=== PATIENT | male | born 1950 | race Caucasian/White ===

== ENCOUNTER 2020-05-13 15:15 | Inpatient (IN) | payer OTHER ==
[~2020-05-13] VITALS: Ht 185.4 cm; Wt 132.4 kg
--- NOTE | ~2020-05-13 | EKG ---
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
[~2020-05-13 15:15] MED LIST: INVOKANA100 MG PO; TIMOLOL GL0.5 %/5 ML OP; TRAVATAN Z2.5 ML OPHTHALMIC; VITAMIN D-32000 UNIT PO
[2020-05-13 15:21] VITALS: BP 144/82
[2020-05-13] MEDS ORDERED: METFORMIN HCL500 MG PO (15:41)
[2020-05-13] MEDS ORDERED: ATORVASTATIN CA20 MG PO (15:41)
[2020-05-13] MEDS ORDERED: TESTOSTERO200 MG/1 M IM (15:42)
[2020-05-13] MEDS ORDERED: LOSARTAN POTASS50 MG PO (15:42)
[2020-05-13] MEDS ORDERED: PROTONIX40 M2 PO (15:42)
[2020-05-13] MEDS ORDERED: SILDENAFIL CIT100 MG PO (15:43)
--- NOTE | 2020-05-13 15:44 | NUR ---
all except triage charted by DONAL Nagel
[2020-05-13 15:48] LABS: ABSOLUTE NEUTROPHILS 3.7 thou/uL (1.4-8.2); BASOPHILS 0.7 % (0.0-2.0); EOSINOPHILS 5.4 % (0.0-3.0); HEMATOCRIT 50.8 % (42.0-52.0); HEMOGLOBIN 17.1 gm/dL (14.0-18.0); LYMPHOCYTES 31.2 % (24.0-44.0); MCH 33.2 pg (26.0-34.0); MCHC 33.7 g/dL (28.0-37.0); MCV 98.5 fL (80.0-100.0); PLATELET COUNT 244 thou/uL (150-400); POLYS 50.7 % (36.0-66.0); RBC 5.15 mil/uL (4.50-6.00); RDW 13.4 % (10.5-14.5); WBC 7.2 thou/uL (4.0-11.0)
[2020-05-13 15:58] LABS: ANION GAP 7 mmol/L (7-16); BUN 17 mg/dL (7-18); CALCIUM 9.4 mg/dL (8.5-10.1); CHLORIDE 103 mmol/L (98-107); CO2 27 mmol/L (21-32); GLUCOSE 106 mg/dL (74-106); SODIUM 137 mmol/L (136-145)
[2020-05-13 16:08] LABS: ALBUMIN 4.6 g/dL (3.4-5.0); SGOT 34 U/L (15-37); SGPT 60 U/L (30-65); TOTAL PROTEIN 8.2 g/dL (6.4-8.2); TROPONIN-I <0.06 ng/mL (<0.06)
[2020-05-13 17:17] LABS: CHOLESTEROL 122 mg/dL (<200); HDL CHOLESTEROL 42 mg/dL (>40); LDL CHOLESTEROL 59 mg/dL (<100); TC:HDL 2.9 Ratio (Not establshd); TRIGLYCERIDE 105 mg/dL (<150); VLDL 21 mg/dL (<40)
--- NOTE | 2020-05-13 19:31 | NUR ---
PER , PT DOES NOT NEED PCR VERIFICATION FOR PLACEMENT. PT TO GO TO CCU.
[2020-05-13 20:19] VITALS: BP 122/56
--- NOTE | 2020-05-13 20:19 | NUR ---
HAND OFF REPORT SENT TO [facility]
[2020-05-13 21:00] VITALS: BP 135/68
--- NOTE | 2020-05-13 21:40 | NUR ---
RECIEVED PT BRINA JACOBSON FROM ED , UPON ARRIVAL TO UNIT PT DENIES CHEST PAIN OR SOA. 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 DISCUSSED PLAN OF CARE AND VERBALIZED UNDERSTANDING AND AGREEABLE . PT NPO AFTER MN FOR AM CARDIAC CATH.PT GAIT STEADY WHEN UP DNEIS DIZZINESS WHEN UP TO BATHROOM.
[2020-05-13 21:59] VITALS: BP 152/66
[2020-05-14] VITALS (12 sets, daily range): BP systolic 104–146; BP diastolic 61–105
[2020-05-14 02:06] LABS: GLYCOHEMOGLOBIN (HGB A1C) 6.6 % (4.8-5.6)
[2020-05-14 05:53] LABS: CALCIUM 9.1 mg/dL (8.5-10.1); CREATININE 1.2 mg/dL (0.7-1.3); POTASSIUM 4.4 mmol/L (3.5-5.1)
--- NOTE | 2020-05-14 07:53 | EKG ---
[facility] [place] [address] [place] [address] ELECTROCARDIOGRAM REPORT Name: JUD ROBERSON Room #: 213-P ADM IN M.R.#: [id number] Admission: 05/13/20 Attend Phys: Andrzej Smith MD, Discharge: Date of : 48 Report #: [id number] THIS REPORT FOR: cc: Srinivasa Pendleton MD, Bernard O. MD Santiago, Patrick MD [facility] ~ THIS REPORT FOR: //name// 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
--- NOTE | 2020-05-14 07:54 | EKG ---
[facility] [address] [address] [place] [address] ELECTROCARDIOGRAM REPORT Name: JUD ROBERSON Room #: 213-P ADM IN M.R.#: [id number] Admission: 05/13/20 Attend Phys: Andrzej Smith MD, Discharge: Date of : 48 Report #: [id number] THIS REPORT FOR: cc: Srinivasa Pendleton MD, Bernard O. 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 : 1950 Requested By: Andrzej Smith Order Number: [id number] MD: Phoenix Castano Measurements Intervals [place] Rate: 64 P: 12 FL: 188 QRS: -39 QRSD: 102 T: -17 QT: 392 QTc: 405 Interpretive Statements Sinus rhythm Abnormal R-wave progression, late transition Left ventricular hypertrophy Nonspecific T abnormalities, inferior leads Compared to ECG 05/13/2020 15:21:59 Left ventricular hypertrophy now present T-wave abnormality now present Left anterior fascicular block no longer present Myocardial infarct finding no longer present Electronically Signed On 05-14-2020 7:54:05 CDT by Phoenix Castano [email or web address] <ELECTRONICALLY SIGNED> By: Phoenix Castano MD, [facility] 05/14/20 0754 1625 1625 Phoenix Castano MD, [facility] /EPI
--- NOTE | 2020-05-14 07:57 | EKG ---
[facility] [place] [address] [address] [place] [address] ELECTROCARDIOGRAM REPORT Name: JUD ROBERSON Room #: 213-P ADM IN M.R.#: [id number] Admission: 05/13/20 Attend Phys: Andrzej Smith MD, Discharge: Date of : 48 Report #: [id number] THIS REPORT FOR: cc: Srinivasa Pendleton MD, Bernard O. 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 : 1950 Requested By: Andrzej Smith Order Number: [id number] MD: Phoenix Castano Measurements Intervals [place] Rate: 59 P: 19 GA: 183 QRS: -36 QRSD: 101 T: -23 QT: 414 QTc: 411 Interpretive Statements Sinus rhythm Probable left atrial enlargement Left ventricular hypertrophy Borderline T abnormalities, inferior leads Compared to ECG 05/13/2020 16:27:57 Left ventricular hypertrophy now present Left-axis deviation no longer present T-wave abnormality still present Electronically Signed On 05-14-2020 7:57:28 CDT by Phoenix Castano [email or web address] <ELECTRONICALLY SIGNED> By: Phoenix Castano MD, [facility] 05/14/20 0757 2 2 Phoenix Castano MD, [facility] /EPI
--- NOTE | 2020-05-14 08:05 | EKG ---
[facility] [place] [address] [address] [place] [address] ELECTROCARDIOGRAM REPORT Name: JUD ROBERSON Room #: 213-P ADM IN M.R.#: [id number] Admission: 05/13/20 Attend Phys: Andrzej Smith MD, Discharge: Date of : 48 Report #: [id number] THIS REPORT FOR: cc: Srinivasa Pendleton MD, Bernard O. MD Lundgren, Craig H. 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
--- NOTE | 2020-05-14 09:55 | 2DMMODE ---
[facility] [address] [place] [address] 2 D/M-MODE ECHOCARDIOGRAM Name: JUD ROBERSON Room #: 213-P ADM IN M.R.#: [id number] Admission: 05/13/20 Attend Phys: Andrzej Smith MD, Discharge: Date of : 48 Report #: [id number] THIS REPORT FOR: cc: Srinivasa Pendleton MD, Bernard O. MD Lammoglia, Francisco J. MD ~ APPROVED REPORT Study performed: 05/14/2020 08:43:09 EXAM: Comprehensive 2D, Doppler, and color-flow Echocardiogram Patient Location: Bedside Room #: 213 Status: routine BSA: 2.50 HR: 64 bpm BP: 104/62 mmHg Rhythm: NSR Other Information Study Quality: Adequate Indications Chest Pain Hx: HTN, HLP, DM, morbid obesity. 2D Dimensions RVDd: 37.22 mm IVSd: 12.36 (7-11mm) LVOT Diam: 22.58 (18-24mm) LVDd: 55.89 mm PWd: 11.34 (7-11mm) Ascending Ao: 38.71 (22-36mm) LVDs: 40.40 (25-40mm) Aortic Root: 35.39 mm Volumes Left Atrial Volume (Systole) Single Plane 4CH: 56.11 mL Single Plane 2CH: 59.04 mL LA ESV Index: 24.00 mL/m2 Aortic Valve AoV Peak Daniel.: 1.21 m/s AO Peak Gr.: 5.83 mmHg LVOT Max P.20 mmHg LVOT Max V: 1.03 m/s NISREEN Vmax: 3.40 cm2 [facility] [address] [place] [address] 2 D/M-MODE ECHOCARDIOGRAM Name: KAROLJUD A Room #: 213-P [facility]#: [id number] Admission: 05/13/20 Attend Phys: Andrzej Smith, Discharge: Date of : 48 Report #: [id number] Mitral Valve E/A Ratio: 1.2 MV Decel. Time: 386.43 ms MV E Max Daniel.: 0.51 m/s MV A Daniel.: 0.41 m/s MV PHT: 112.07 ms IVRT: 101.50 ms Pulmonary Valve PV Peak Daniel.: 1.13 m/s PV Peak Gr.: 5.13 mmHg Pulmonary Vein P Vein S: 0.37 m/s P Vein A: 0.20 m/s P Vein D: 0.33 m/s P Vein A Dur.: 138.4 msec P Vein S/D Ratio: 1.12 Tricuspid Valve TR Peak Daniel.: 2.05 m/s RAP Estimate: 5.00 mmHg TR Peak Gr.: 17.00 mmHg PA Pressure: 22.00 mmHg Left Ventricle The left ventricle is normal size. There is normal LV segmental wall motion. Mild concentric left ventricular hypertrophy. Left ventricular systolic function is normal. LVEF is 60-65%. Moderate diastolic dysfunction is present. Right Ventricle The right ventricle is normal size. The right ventricular systolic function is normal. Atria The left atrium size is normal. The right atrium size is normal. Aortic Valve The aortic valve is normal in structure. Mild aortic regurgitation. There is no aortic valvular stenosis. Mitral Valve The mitral valve is normal in structure. There is no mitral valve regurgitation noted. No evidence of mitral valve stenosis. Tricuspid Valve The tricuspid valve is normal in structure. Trace tricuspid [facility] [address] [address] 2 D/M-MODE ECHOCARDIOGRAM Name: JUD ROBERSON Room #: 213-P [facility] IN .R.#: [id number] Admission: 05/13/20 Attend Phys: Andrzej Smith, Discharge: Date of : 48 Report #: [id number] regurgitation. Estimated PAP is 20-25mmHg. Pulmonic Valve The pulmonary valve is normal in structure. Trace pulmonic regurgitation. Great Vessels The aortic root is normal in size. The ascending aorta is mildly dilated. IVC is normal in size and collapses >50% with inspiration. Pericardium There is no pericardial effusion. <Conclusion> The left ventricle is normal size. LVEF is 60-65%. The left atrium size is normal. The aortic valve is normal in structure. Mild aortic regurgitation. The mitral valve is normal in structure. The tricuspid valve is normal in structure. Trace tricuspid regurgitation. Estimated PAP is 20-25mmHg. The pulmonary valve is normal in structure. Trace pulmonic regurgitation. There is no pericardial effusion. <ELECTRONICALLY SIGNED> By: Rober Traore MD 05/14/20954 4 4 Rober Traore MD /INF
--- NOTE | 2020-05-14 14:23 | NUR ---
ASSUMED CARE AT CHANGE OF SHIFT, NPO FOR HEART CATH. ALERT X4, AB LISBETH IN ROOM. USES OWN BIPAP AT NIGHT. NO INTERVENTIO POST CATH. VSS, RIGHT GROIN SIGHT C/D/I. DENIES PAIN, DENIES SOB. INSTRUCTED TO KEEP RIGHT LEG IMMOBILIZED UNTIL 1600. PER CONCRETE BLOCK [place] NITRO PAST IS NOT REQUIRED. PT LIKELY TO DC TOMORROW. FALL PRECATIONS IN PLACE WITH ON ON BEDREST. CALL LIGHT AND PERSONAL ITEMS IN REACH. BEDSIDE.
[2020-05-14] MEDS ORDERED: DEMADEX20 MG PO (15:32)
[2020-05-15 04:45] VITALS: BP 134/77
[2020-05-15 05:26] LABS: POTASSIUM 3.8 mmol/L (3.5-5.1)
[2020-05-15 07:43] VITALS: BP 130/85
--- NOTE | 2020-05-15 09:07 | NUR ---
ASSESSMENT: CM REVIEWED CHART AND SPOKE WITH PT. PT IS ALERT AND ORIENTED X4. PT IS HERE DUE TO ANGINA AND IS S/P LEFT HEART CATH. PT REPORTS THAT HE LIVES IN A BOO/TOWNHOUSE WITH HIS . PT REPORTS NO STEPS TO ENTER OR ONCE INSIDE. PT REPORTS BEING FULLY INDEPENDENT WITH ADLS AND AMBULATION. PT STATES HE DOES HAVE A BIPAP AT HOME. PT REPORTS NO HX OF HH OR SNF. PLANS ARE TO POSSIBLE DISCHARGE HOME TODAY WITH NO NEEDS PENDING CLEARNANCE FROM . PT DOES NOT ANTICIPATE HAVING ANY NEEDS.
--- NOTE | 2020-05-15 09:27 | NUR ---
ASSUMED CARE AT CHANGE OF SHIFT. ORIENTEDX4 AWAKE CALM, GROIN SIGHT C/D/I, CAT SKINNER REVIED POST CATH PROCEDURE AND CATH SIGHT CARE. NSR ON TELE. DENIES CHEST PAIN, DENIES SOB. WILL DC HOME WITH SELF CARE TODAY. CALLS FOR ASSISTANCE.
[2020-05-15 10:41] VITALS: BP 130/85
--- NOTE | 2020-05-15 16:00 | CATHLAB ---
[facility] [address] [place] [address] INVASIVE PROCEDURE REPORT Name: JUD ROBERSON Room #: 213-P DIS IN M.R.#: [id number] Admission: 05/13/20 Attend Phys: Andrzej Smith MD, Discharge: 05/15/20 Date of : 48 Report #: [id number] THIS REPORT FOR: cc: Srinivasa Pendleton MD, Bernard O. MD Mancuso, Gerald M. MD [facility] ~ APPROVED REPORT Study performed: 05/14/2020 11:17:56 Patient Details Patient Status: In-Patient Room #: The patient is a 70 year-old male Event Personnel Andrzej Smith Special Effects Makeup Artist, Johana Khan Spooner, Carly RTR Monitor, Raghav Gallego RN plastics and composites inspector Performed Brooks Access - R femoral vein Art Access - R femoral artery* Right and Left Heart Cath w/or w/o Coronarie [id number] [facility] Aortogram Abdominal Peripheral Angio 577085 Hemostasis w/ Mynx 89548 Initial Mod Sed Same Phys/QHP Gr5y [id number] 67709 Mod Sed Same Phys/QHP Ea 757417 Procedure Narrative The Right Groin^ was infiltrated with 1% Lidocaine subcutaneous anesthesia. A Right Heart Catheterization was performed with a 7 Fr. [place]-David catheter and pressure were recorded. Cardiac outputs were obtained by the Thermal Dilution method. A PINNACLE 6FR Sheath #[id number] sheath was inserted into the RFA^. Coronary angiography was performed using coronary diagnostic catheters. The right coronary system was accessed and visualized with a JR4 catheter. The left coronary system was accessed and visualized with a JL4 catheter. The left ventricle was accessed and visualized with a PIGTAIL catheter. Left ventriculogram was performed in 30 degree projection. An aortogram of the abdominal aorta was performed. Closure device was deployed with a Fr MYNXGRIP 6/7F #[id number]. The patient tolerated the procedure well and there were no complications associated with the procedure. There was no hematoma. Intraoperative Conscious Sedation Sedation start time: 12:20 Case end Time: 12:56 [place] [address] [place] [address] INVASIVE PROCEDURE REPORT Name: MARIAELENAMADDI CALVERTJUD A Room #: 213-P [facility] IN ..#: [id number] Admission: 05/13/20 Attend Phys: Andrzej Smith, Discharge: 05/15/20 Date of : 48 Report #: [id number] Fentanyl 50 mcg Versed 1 mg Fluoro Time: 4.10 minutes Dose: DAP 67522.60 cGycm2 1503 mGy Contrast Type and Amount: Visipaque 115 ml Hemodynamics The right atrial mean pressure is 17 mmHg. The right ventricular pressure is 35/18 mmHg. The pulmonary artery pressure is 33/20 mmHg with a mean of 26 mmHg. The mean pulmonary capillary wedge pressure is 24 mmHg. The aortic pressure is 118/66 mmHg with a mean of 95 mmHg. The left ventricular pressure is 127/8 mmHg with a mean of mmHg. The left ventricular end diastolic pressure is 23 mmHg. The cardiac output using thermo method is 7.63 L/min. The cardiac index using thermo method is 3.03 L/min/m2. Conclusion #1. Borderline left ventricular dilatation with ejection fraction lower limits of normal EF 50% range #2 tortuous abdominal aorta with mild calcification no significant aneurysm noted. #3 left main large and free of disease giving rise to LAD and circumflex #4 large LAD which extends to the apex no occlusive disease. Mild proximal calcification. #5 circumflex OM appears to be a dominant vessel also large and mildly diseased. Nothing occlusive. #6 nondominant right coronary artery no occlusive disease #7 successful right heart catheterization with mild elevation pulmonary pressure/wedge pressure. Recommendations and plan: Continue aggressive risk factor modification. Diuresis has been added based on mild to modest elevation of the pulmonary pressures. Transfer back to CCU. Stable condition. Appears to be a component of diastolic dysfunction <ELECTRONICALLY SIGNED> By: Andrzej Smith MD, FACC 05/15/201599 99 99 Andrzej Smith MD, FACC /INF
== END 2020-05-15 12:26 | disposition home or self-care (01) | DRG 286 ==
LOC: ER 15:15 → 2N 16:37 → EROBS 16:37 → 2N 21:05
PROVIDERS: Emergency Medicine; Nurse Practitioner Adult Health; ADMIT Internal Medicine Cardiovascular Disease; ATTEND Internal Medicine Cardiovascular Disease
PROC: 4A023N8 Measurement of Cardiac Sampling and Pressure, Bilateral, Percutaneous Approach (ICD-10-PCS; principal; 2020-05-14)
PROC: B215YZZ Fluoroscopy of Left Heart using Other Contrast (ICD-10-PCS; principal; 2020-05-14)
PROC: B211YZZ Fluoroscopy of Multiple Coronary Arteries using Other Contrast (ICD-10-PCS; principal; 2020-05-14)
PROC: B410YZZ Fluoroscopy of Abdominal Aorta using Other Contrast (ICD-10-PCS; principal; 2020-05-14)
DX: I25.119 Atherosclerotic heart disease of native coronary artery with unspecified angina pectoris (principal); I50.31 Acute diastolic (congestive) heart failure; E11.9 Type 2 diabetes mellitus without complications; I10 Essential (primary) hypertension; E78.00 Pure hypercholesterolemia, unspecified; G47.33 Obstructive sleep apnea (adult) (pediatric); E78.5 Hyperlipidemia, unspecified; Z20.828 Contact with and (suspected) exposure to other viral communicable diseases; Z28.21 Immunization not carried out because of patient refusal; Z87.891 Personal history of nicotine dependence
CPT/HCPCS: 10081

== ENCOUNTER → 2020-10-14 | Outpatient (CLI) | payer OTHER ==
[~2020-10-14] MED LIST changes: +ATORVASTATIN CA20 MG PO; +DEMADEX20 MG PO; +LOSARTAN POTASS50 MG PO; +METFORMIN HCL500 MG PO; +PROTONIX40 M2 PO; +SILDENAFIL CIT100 MG PO; +TESTOSTERO200 MG/1 M IM
== END ==
LOC: SJCVC 13:09
PROVIDERS: ATTEND Internal Medicine Cardiovascular Disease
DX: I25.10 Atherosclerotic heart disease of native coronary artery without angina pectoris (principal); E78.5 Hyperlipidemia, unspecified; E11.9 Type 2 diabetes mellitus without complications; I11.0 Hypertensive heart disease with heart failure; I50.9 Heart failure, unspecified; Z98.890 Other specified postprocedural states; Z79.84 Long term (current) use of oral hypoglycemic drugs; Z79.899 Other long term (current) drug therapy; Z87.891 Personal history of nicotine dependence

== ENCOUNTER → 2021-08-04 | Outpatient (CLI) | payer OTHER | LOC: SJCVC 13:03 | PROVIDERS: ATTEND Internal Medicine Cardiovascular Disease | DX: I25.10 Atherosclerotic heart disease of native coronary artery without angina pectoris (principal); I44.4 Left anterior fascicular block; R94.31 Abnormal electrocardiogram [ECG] [EKG]; I11.0 Hypertensive heart disease with heart failure; I50.9 Heart failure, unspecified; E78.5 Hyperlipidemia, unspecified; E11.9 Type 2 diabetes mellitus without complications; C44.301 Unspecified malignant neoplasm of skin of nose; Z79.84 Long term (current) use of oral hypoglycemic drugs; Z79.899 Other long term (current) drug therapy; Z87.891 Personal history of nicotine dependence; Z98.890 Other specified postprocedural states ==